=== PATIENT | male | born 1955 | race Caucasian/White ===

== ENCOUNTER 2021-08-19 12:16 | Emergency (ER) | payer MEDICARE, OTHER ==
[2021-08-19] MEDS ORDERED: Adenosine 6 MG/2 ML SDV IVPUSH ONE (12:38)
[2021-08-19] MEDS ORDERED: Diltiazem 25 MG/5 ML SDV IVPUSH ONE ×2 (14:17→15:02)
[2021-08-19] MEDS ORDERED: Magnesium Sulfate/Water 2 GM in Premix Bag 1 BAG IV ONE (14:19)
--- NOTE | 2021-08-19 15:25 | EDM.PDOC ---
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, says he gets SVT after eating carbohydrates last night he ate pretzel and pizza, which is unusual for him awake at 4a with palpitations that have persisted he went to clinic which tried vagal manuevers without success and sent him here had been on Sotalol in past, 100 mg/d, altho it was then stopped pt in SVT here on arrival, adenosine ordered, however pt converted to SR after several 100 ml's NS and no meds, however 1.5h later he went back into afib, given dilt 10 mg IV x 2 without change in HR, will proceed with adenosine 6 mg IV Mg 1.5, being given Mg 2 gm IV over 1h c/o palpitations, no CP has girlfriend, retired, no n/v, no f/c/d - Related Data Allergies Allergy/AdvReac Type Severity Reaction Status Date / Time No Known Allergies Allergy Verified 08/19/21 15:41 Home Meds: Home Meds Fluticasone Propionate [Flonase] 1 spray INH DAILY 08/19/21 [History] Magnesium Oxide 400 mg PO DAILY #30 tab 08/19/21 [Rx] Metoprolol Succinate 50 mg PO DAILY #90 tab.er.24h 08/19/21 [Rx] Olmesartan Medoxomil 40 mg PO DAILY 08/19/21 [History] Omeprazole 20 mg PO DAILY 08/19/21 [History] Spironolactone [Aldactone] 25 mg PO DAILY 08/19/21 [History] ED ROS GENERAL - Review of Systems Review Of Systems: See Below Constitutional: Reports: No Symptoms HEENT: Reports: No Symptoms Respiratory: Reports: No Symptoms. Denies: Shortness of Breath, Wheezing, Pleuritic Chest Pain, Cough Cardiovascular: Reports: Palpitations. Denies: Chest Pain, Dyspnea on Exertion Endocrine: Reports: No Symptoms GI/Abdominal: Reports: No Symptoms. Denies: Nausea, Vomiting : Reports: No Symptoms Musculoskeletal: Reports: No Symptoms Skin: Reports: No Symptoms Neurological: Reports: No Symptoms Psychiatric: Reports: No Symptoms Hematologic/Lymphatic: Reports: No Symptoms Immunologic: Reports: No Symptoms ED EXAM, GENERAL - Physical Exam Exam: See Below Exam Limited By: No Limitations General Appearance: Alert, WD/WN, No Apparent Distress, Other (alert, pleasant, NAD, normal speech, good eye contact, patient) Ears: Normal External Exam Throat/Mouth: Normal Inspection, No Airway Compromise Head: Atraumatic, Normocephalic Neck: Normal Inspection, Supple, Non-Tender, Full Range of Motion Respiratory/Chest: No Respiratory Distress, Lungs Clear, Normal Breath Sounds, Chest Non-Tender Cardiovascular: No Edema, Tachycardia, Other (irreg, irreg) GI/Abdominal: Normal Bowel Sounds, Soft, Non-Tender, No Organomegaly, Other (inc'd adipose tissue) Back Exam: Normal Inspection, Full Range of Motion Extremities: Normal Inspection, Normal Range of Motion, Non-Tender, No Pedal Edema Neurological: Alert, Oriented, CN II-XII Intact, Normal Cognition, No Motor/Sensory Deficits Psychiatric: Normal Affect, Normal Mood Skin Exam: Warm, Dry, Intact, Normal Color, No Rash Lymphatic: No Adenopathy #1 Interpretation EKG Date: 08/19/21 Time: 12:28 Rhythm: Other (SVT) Rate (Beats/Min): 167 [place]: Normal P-Wave: Absent QRS: Normal ST-T: Normal (narrow complex regular) Comparison: NA - No Prior EKG (narrow complex regular tachycardia c/w SVT) #2 Interpretation EKG Date: 08/19/21 Time: 12:51 Rhythm: NSR Rate (Beats/Min): 77 [place]: Normal P-Wave: Present QRS: Normal ST-T: Normal QT: Normal (spontaneous conversion SR without meds (only given several 100 ml NS), borderline early transition, no acute/ST changes) Course - Vital Signs Last Recorded V/S: Last Vital Signs Temp 36.6 C 08/19/21 12:17 Pulse 172 H 08/19/21 12:17 Resp 20 08/19/21 12:17 BP 132/93 H 08/19/21 12:17 Pulse Ox 99 08/19/21 12:17 - Orders/Labs/Meds Orders: Active Orders 24 hr Category Date Time Status Magnesium Sulfate/Water [Magnesium Sulfate in Water 2 Med 08/19/21 14:19 Active GM/50 ML] 2 gm Premix Bag 1 bag IV ONETIME EKG 12 Lead [EK] Routine Ther 08/19/21 12:44 Ordered Medication Orders Magnesium Sulfate 2 gm/ Premix 50 mls @ 12.5 mls/hr IV ONETIME ONE Stop: 08/19/21 18:18 Last Admin: 08/19/21 14:32 Dose: 12.5 mls/hr Documented by: DAPHNE Labs: Laboratory Tests 08/19/21 08/19/21 08/19/21 Range/Units 13:00 13:00 13:00 WBC 5.1 (3.2-10.1) x10-3/uL RBC 3.38 L (3.90-5.90) x10(6)uL Hgb 11.4 L (12.9-17.7) g/dL Hct 33.1 L (38.3-50.1) % MCV 97.8 (80.8-98.7) fL MCH 33.8 H (27.0-33.3) pg MCHC 34.5 (28.7-35.3) g/dL RDW 15.3 H (12.4-15.0) % Plt Count 125 (117-477) x10(3)uL MPV 7.0 (6.7-11.0) fL Neut % (Auto) 72.9 H (40.3-71.8) % Lymph % (Auto) 20.7 (15.8-45.3) % [place] % (Auto) 5.7 (5.5-15.2) % Eos % (Auto) 0.3 (0.1-6.8) % Baso % (Auto) 0.4 (0.3-3.8) % Neut # (Auto) 3.7 (1.7-6.9) x10-3/uL Lymph # (Auto) 1.1 (0.5-4.5) x10-3/uL [place] # (Auto) 0.3 (0.0-1.2) x10-3/uL Eos # (Auto) 0.0 (0.0-0.6) x10-3/uL Baso # (Auto) 0.0 (0.0-0.3) x10-3/uL Sodium 144 (135-145) mmol/L Potassium 3.9 (3.5-5.3) mmol/L Chloride 110 (100-110) mmol/L Carbon Dioxide 23 (21-32) mmol/L BUN 21 H (7-18) mg/dL Creatinine 1.0 (0.70-1.30) mg/dL Est Cr Clr Drug Dosing TNP Estimated GFR (MDRD) > 60 (>60) BUN/Creatinine Ratio 21.0 H (9-20) Glucose 134 H (80-116) mg/dL Calcium 8.1 L (8.6-10.2) mg/dL Magnesium (1.8-2.5) mg/dL Total Bilirubin 0.7 (0.1-1.3) mg/dL AST 21 (5-25) IU/L ALT 39 H (12-36) U/L Alkaline Phosphatase 42 L (56-112) IU/L Troponin I 19.7 (4.0-60.3) pg/mL C-Reactive Protein < 0.2 L (0.5-0.9) mg/dL Total Protein 6.1 (6.0-8.0) g/dL Albumin 3.4 (3.2-4.6) g/dL Globulin 2.7 g/dL Albumin/Globulin Ratio 1.3 TSH, Ultra Sensitive (0.36-3.74) IU/mL 08/19/21 08/19/21 08/19/21 Range/Units 13:00 13:00 15:53 WBC (3.2-10.1) x10-3/uL RBC (3.90-5.90) x10(6)uL Hgb (12.9-17.7) g/dL Hct (38.3-50.1) % MCV (80.8-98.7) fL MCH (27.0-33.3) pg MCHC (28.7-35.3) g/dL RDW (12.4-15.0) % Plt Count (117-477) x10(3)uL MPV (6.7-11.0) fL Neut % (Auto) (40.3-71.8) % Lymph % (Auto) (15.8-45.3) % [place] % (Auto) (5.5-15.2) % Eos % (Auto) (0.1-6.8) % Baso % (Auto) (0.3-3.8) % Neut # (Auto) (1.7-6.9) x10-3/uL Lymph # (Auto) (0.5-4.5) x10-3/uL [place] # (Auto) (0.0-1.2) x10-3/uL Eos # (Auto) (0.0-0.6) x10-3/uL Baso # (Auto) (0.0-0.3) x10-3/uL Sodium (135-145) mmol/L Potassium (3.5-5.3) mmol/L Chloride (100-110) mmol/L Carbon Dioxide (21-32) mmol/L BUN (7-18) mg/dL Creatinine (0.70-1.30) mg/dL Est Cr Clr Drug Dosing Estimated GFR (MDRD) (>60) BUN/Creatinine Ratio (9-20) Glucose (80-116) mg/dL Calcium (8.6-10.2) mg/dL Magnesium 1.5 L (1.8-2.5) mg/dL Total Bilirubin (0.1-1.3) mg/dL AST (5-25) IU/L ALT (12-36) U/L Alkaline Phosphatase (56-112) IU/L Troponin I 30.2 (4.0-60.3) pg/mL C-Reactive Protein (0.5-0.9) mg/dL Total Protein (6.0-8.0) g/dL Albumin (3.2-4.6) g/dL Globulin g/dL Albumin/Globulin Ratio TSH, Ultra Sensitive 1.22 (0.36-3.74) IU/mL Meds: Medications Generic Name Dose Route Start Last Admin Trade Name Freq PRN Reason Stop Dose Admin Magnesium Sulfate 2 gm/ Premix 50 mls @ 12.5 mls/hr 08/19/21 14:19 08/19/21 14:32 IV 08/19/21 18:18 12.5 mls/hr ONETIME ONE Administration Discontinued Medications Generic Name Dose Route Start Last Admin Trade Name Freq PRN Reason Stop Dose Admin Adenosine 6 mg 08/19/21 12:38 08/19/21 15:28 Adenosine 6 Mg/2 Ml Sdv IVPUSH 08/19/21 12:39 6 mg NOW ONE Administration Diltiazem HCl 10 mg 08/19/21 14:17 08/19/21 14:28 Diltiazem 25 Mg/5 Ml Sdv IVPUSH 08/19/21 14:18 10 mg ONETIME ONE Administration Diltiazem HCl 10 mg 08/19/21 15:02 08/19/21 15:08 Diltiazem 25 Mg/5 Ml Sdv IVPUSH 08/19/21 15:03 10 mg ONETIME ONE Administration - Re-Assessments/Exams Free Text/Narrative Re-Assessment/Exam: 08/19/21 16:28 d/w cardiology quality control checker for [facility] who recommended Toprol XL 50 mg/d, pt in agreement trop x 2 neg pt reports he was scheduled for ablation once but was ill on the day of the procedure and did not go in, he is interested in considering it again, which he should d/w with his PCP he remained in SR x 1h after adenosine 6 mg IV once will put on Mg Departure - Departure Time of Disposition: 16:25 Disposition: Home, Self-Care 01 Condition: Good Clinical Impression: Paroxysmal supraventricular tachycardia, Hypomagnesemia, Elevated BUN, Mild dehydration Prescriptions: Magnesium Oxide 400 mg PO DAILY #30 tab Metoprolol Succinate 50 mg PO DAILY #90 tab.er.24h Instructions: Supraventricular Tachycardia, Adult, Hypomagnesemia Referrals: PCP,Not In Area [Primary Care Provider] - Additional Instructions: Continue current meds. Maintain fluids. Add metoprolol succinate 50 mg 1 tab daily, beginning this afternoon. See your supervisor mending Dr Downs next week for further recommendations. Return to ED if you feel worse or your heart starts racing again. Sepsis Event Note (ED) - Focused Exam Vital Signs: Vital Signs Temp Pulse Resp BP Pulse Ox 08/19/21 12:17 36.6 C 172 H 20 132/93 H 99 - My Orders Last 24 Hours: My Active Orders 08/19/21 12:44 EKG 12 Lead [EK] Routine 08/19/21 14:19 Magnesium Sulfate/Water [Magnesium Sulfate in Water 2 GM/50 ML] 2 gm Premix Bag 1 bag IV ONETIME - Assessment/Plan Last 24 Hours: My Active Orders 08/19/21 12:44 EKG 12 Lead [EK] Routine 08/19/21 14:19 Magnesium Sulfate/Water [Magnesium Sulfate in Water 2 GM/50 ML] 2 gm Premix Bag 1 bag IV ONETIME
== END 2021-08-19 16:45 | disposition home or self-care (01) ==
LOC: FB.ED 12:16
DX: I47.1 Supraventricular tachycardia (principal); E86.0 Dehydration; E83.42 Hypomagnesemia; R79.1 Abnormal coagulation profile
CPT/HCPCS: 36415; 80053; 83735; 84443; 84484; 85025; 86140; 93005; 96365; 96375; 96376; 99285; J0153; J3475; J3490